=== PATIENT | male | born 1990 | race Caucasian/White ===

== ENCOUNTER 2018-12-21 12:32 | Emergency (ER) | payer SELFPAY, OTHER ==
[2018-12-21] MEDS: LIDOCAINE 1% (MPF) 5 ML VIAL INJ (13:01)
[2018-12-21] MEDS: DIPHTH/TET/ACEL PERTUSS (ADULT) 0.5 ML VIAL IM* (13:05)
[2018-12-21] MEDS: HYDROCODONE/APAP (5/325) TAB PO (14:01)
[2018-12-21] MEDS: ONDANSETRON (ODT) 4 MG TAB ODT (14:01)
== END 2018-12-21 15:10 | disposition home or self-care (01) ==
LOC: FTE 15:10
DX: N45.4 Abscess of epididymis or testis (principal); Z23 Encounter for immunization
CPT/HCPCS: 10060; 90471; 90715; 99283-25